=== PATIENT | female | born 1970 | race Hispanic/Latino ===

== ENCOUNTER 2022-09-21 12:24 | Emergency (ER) | payer OTHER, SELFPAY | END 2022-09-21 14:48 | disposition home or self-care (01) | LOC: CSHERS 12:24 | DX: L02.414 Cutaneous abscess of left upper limb (principal); E78.5 Hyperlipidemia, unspecified; E78.00 Pure hypercholesterolemia, unspecified; E11.9 Type 2 diabetes mellitus without complications; I10 Essential (primary) hypertension ==